=== PATIENT | male | born 1995 | race Caucasian/White ===

== ENCOUNTER 2021-03-20 07:21 | Emergency (ER) | payer OTHER ==
[~2021-03-20] VITALS: Ht 185.4 cm; Wt 108.0 kg
[2021-03-20 07:27] VITALS: BP 141/84
[2021-03-20] MEDS ORDERED: TRAZODONE HCL50 MG PO (07:30)
[2021-03-20] MEDS ORDERED: CLARITIN10 M3 PO (07:31)
[2021-03-20] MEDS ORDERED: EFFEXOR XR150 MG PO (07:31)
== END 2021-03-20 08:41 | disposition home or self-care (01) ==
LOC: M.ERS 07:21
DX: S61.012A Laceration without foreign body of left thumb without damage to nail, initial encounter (principal); F32.9 Major depressive disorder, single episode, unspecified; Z79.899 Other long term (current) drug therapy; W26.0XXA Contact with knife, initial encounter; Y93.89 Activity, other specified; Y92.89 Other specified places as the place of occurrence of the external cause; Y99.8 Other external cause status